=== PATIENT | female | born 1990 | race Two or more races ===

== ENCOUNTER 2021-12-28 13:15 | Emergency (ER) | payer OTHER ==
[~2021-12-28] VITALS: Ht 152.4 cm; Wt 86.6 kg
== END 2021-12-28 19:14 | disposition home or self-care (01) ==
LOC: ER 13:15
DX: R53.81 Other malaise (principal)

== ENCOUNTER 2022-02-16 11:35 | Outpatient (CLI) | payer OTHER ==
[2022-02-16] MEDS ORDERED: ATABEX DHA 200200 MG PO (11:48)
[2022-02-16] MEDS ORDERED: CHILDREN'S ASPI81 MG PO (11:49)
== END 2022-02-16 17:05 | disposition home or self-care (01) ==
LOC: OBS/DEL 11:35
PROVIDERS: ATTEND Obstetrics & Gynecology
DX: O46.8X3 Other antepartum hemorrhage, third trimester (principal); Z3A.31 31 weeks gestation of pregnancy

== ENCOUNTER 2022-03-31 06:21 | Inpatient (IN) | payer OTHER ==
[~2022-03-31] VITALS: Ht 152.4 cm; Wt 93.9 kg
[~2022-03-31 06:21] MED LIST: ATABEX DHA 200200 MG PO; CHILDREN'S ASPI81 MG PO
[2022-03-31] MEDS ORDERED: CHILDREN'S ASPI81 MG PO (06:35)
[2022-03-31] MEDS ORDERED: PRENATAL TABLE1 EAC1 (06:36)
== END 2022-04-02 18:40 | disposition home or self-care (01) | DRG 807 ==
LOC: LDR 06:21 → OB/GYN 06:21
PROVIDERS: ADMIT Obstetrics & Gynecology; ATTEND Obstetrics & Gynecology
PROC: 10E0XZZ Delivery of Products of Conception, External Approach (ICD-10-PCS; principal; 2022-03-31)
PROC: 0W8NXZZ Division of Female Perineum, External Approach (ICD-10-PCS; 2022-03-31)
PROC: 4A1HXCZ Monitoring of Products of Conception, Cardiac Rate, External Approach (ICD-10-PCS; 2022-03-31)
DX: O80 Encounter for full-term uncomplicated delivery (principal); Z37.0 Single live birth; Z3A.37 37 weeks gestation of pregnancy; Z20.822 Contact with and (suspected) exposure to COVID-19